=== PATIENT | female | born 1945 ===

== ENCOUNTER 2020-09-19 12:08 | Outpatient (REF) | payer OTHER, SELFPAY ==
[2020-09-19 22:00] LABS: Anion Gap 11.3 mmol/L (3-11); BUN 19 mg/dL (7-18); CO2 25.7 mmol/L (21.0-32.0); CREATININE 0.92 mg/dL (0.55-1.02); Calculated LDL 154 mg/dL (<100); Chloride 103 mmol/L (98-107); Cholesterol 259 mg/dL (<200); Estimated GFR 59.84 (mL/min/1.73m2); Glucose 90 mg/dL (74-106); HDL Cholesterol 57 mg/dL (40-60); Potassium 4.2 mmol/L (3.5-5.1); Sodium 140 mmol/L (136-145); TSH (W/Ref FT4) 2.04 uIU/mL (0.36-3.74); Triglyceride 242 mg/dL (<150)
[2020-10-08 15:06] LABS: Hepatitis C Ab w Rflx HCV PCR Negative (Negative)
== END 2020-09-19 12:28 ==
LOC: NCHCN 12:08
PROVIDERS: Visit Provider Nurse Practitioner Family
DX: Z00.00 Encounter for general adult medical examination without abnormal findings (principal); I10 Essential (primary) hypertension
CPT/HCPCS: 80048; 80061; 86803; 84443

== ENCOUNTER 2022-12-07 11:32 | Outpatient (REF) | payer MEDICARE, SELFPAY ==
[2022-12-07 14:44] LABS: BUN 21 mg/dL (7-18); CREATININE 1.1 mg/dL (0.55-1.02); Calcium 10.1 mg/dL (8.5-10.1); Calculated LDL 154 mg/dL (<100); Chloride 102 mmol/L (98-107); Cholesterol 279 mg/dL (<200); Glucose 91 mg/dL (74-106); HDL Cholesterol 52 mg/dL (40-60); Potassium 4.2 mmol/L (3.5-5.1); Sodium 142 mmol/L (136-145); Triglyceride 369 mg/dL (<150)
== END 2022-12-07 11:33 | disposition home or self-care (01) ==
LOC: NCHCN 11:32
PROVIDERS: Visit Provider Family Medicine
DX: I10 Essential (primary) hypertension (principal); R19.7 Diarrhea, unspecified
CPT/HCPCS: 80048; 80061; 85025